=== PATIENT | male | born 1955 | race Caucasian/White ===

== ENCOUNTER 2016-12-29 11:04 | Emergency (ER) | payer OTHER ==
[~2016-12-29 11:04] MED LIST: ASPI81TA82 PO; ATEN-102 PO; CEPH500C3 PO; FISH1000 PO; GLUCTAB PO; OMEP20TA OR; SIMV80TA OR
[2016-12-29 11:07] VITALS: BP 166/84; PULSE 58; RESP 15; TEMP 97.9; O2SAT 98
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
[2016-12-29] MEDS ORDERED: KETOROLAC TROMETHAMINE 60 MG/2 ML (IM) VIAL IM ONE (12:00)
[2016-12-29] MEDS ORDERED: predniSONE 20 MG TAB PO ONE (12:00)
[2016-12-29] MEDS ORDERED: CYCL1TAB29 PO (12:01)
[2016-12-29] MEDS ORDERED: PRED20 PO (12:01)
[2016-12-29] MEDS ORDERED: HYDR-3533 PO (12:01)
== END 2016-12-29 12:49 | disposition home or self-care (01) ==
LOC: NEPK 11:04
DX: M75.101 Unspecified rotator cuff tear or rupture of right shoulder, not specified as traumatic (principal); M62.838 Other muscle spasm; E78.00 Pure hypercholesterolemia, unspecified; I25.2 Old myocardial infarction; Z87.39 Personal history of other diseases of the musculoskeletal system and connective tissue; Z86.79 Personal history of other diseases of the circulatory system; Z87.19 Personal history of other diseases of the digestive system
CPT/HCPCS: 96372; 99284; J1885; J7512